=== PATIENT | female | born 1980 | race Caucasian/White ===

== ENCOUNTER 2020-06-01 17:13 | Inpatient (IN) | payer MEDICAID ==
[~2020-06-01] VITALS: Ht 172.7 cm; Wt 60.0 kg
[~2020-06-01 17:13] MED LIST: CEPH-357 PO; CYCL-1 PO; IBUP-1984 PO; IBUP-1985 PO; TRAM50TA2 PO
--- NOTE | 2020-06-01 20:52 | NUR ---
Informed MD of the extent of the wound/He is going to order a CT of the Left FA. Encouraged wound culture order as well. Pt covered with 2 blankets and lights dimmed.
[2020-06-01 21:06] LABS: BASOPHILS # (AUTO) 0.1 X10'3 (0-0.2); BASOPHILS % (AUTO) 0.5 % (0-1); EOSINOPHILS # (AUTO) 0.1 X10'3 (0-0.9); EOSINOPHILS % (AUTO) 0.6 % (0-6); HEMATOCRIT 34.2 % (35.0-45.0); HEMOGLOBIN 11.5 g/dl (12.0-16.0); LYMPHOCYTES # (AUTO) 1.9 X10'3 (1.1-4.8); LYMPHOCYTES % (AUTO) 10.6 % (21-51); MEAN CORPUSCULAR HEMOGLOBIN 29.7 PG (27.0-31.0); MEAN CORPUSCULAR HGB CONC 33.5 g/dL (33.0-36.5); MEAN CORPUSCULAR VOLUME 88.8 FL (78-98); MEAN PLATELET VOLUME 9.3 FL (7.4-10.4); MONOCYTES # (AUTO) 1.3 X10'3 (0-0.9); MONOCYTES % (AUTO) 7.6 % (2-12); NEUTROPHILS # (AUTO) 14.2 X10'3 (1.8-7.7); NEUTROPHILS % (AUTO) 80.7 % (42-75); PLATELET COUNT 284 X10'3 (140-440); RED BLOOD COUNT 3.85 X10'6 (4.20-5.60); RED CELL DISTRIBUTION WIDTH 12.6 % (11.5-14.5); WHITE BLOOD COUNT 17.6 X10'3 (4.5-11.0)
--- NOTE | 2020-06-01 21:12 | NUR ---
CESAR FLAHERTY AT BEDSIDE.
[2020-06-01 21:20] LABS: ALANINE AMINOTRANSFERASE 26 U/L (12-78); ALBUMIN 2.7 G/DL (3.4-5.0); ALBUMIN/GLOBULIN RATIO 0.7 (1.1-1.5); ALKALINE PHOSPHATASE 117 IU/L (46-116); ANION GAP 10 (8-16); ASPARTATE AMINO TRANSFERASE 22 U/L (10-37); BILIRUBIN,TOTAL 0.7 MG/DL (0.1-1.0); BLOOD UREA NITROGEN 14 MG/DL (7-18); BUN/CREATININE RATIO 16.3 (6.6-38.0); CALCIUM 8.4 MG/DL (8.5-10.1); CHLORIDE 104 MMOL/L (99-107); CREATININE 0.86 MG/DL (0.40-0.90); GLUCOSE 91 MG/DL (70-104); POTASSIUM 3.4 MMOL/L (3.5-5.1); SODIUM 140 MMOL/L (135-145); TOTAL CARBON DIOXIDE 26.1 MMOL/L (24-32); TOTAL PROTEIN 6.8 G/DL (6.4-8.2); eGFR 73 ML/MIN
[2020-06-01] MEDS ORDERED: vancomycin/NS 1 GM ADD-VANTAGE 250 ML IV ONE (21:25)
[2020-06-01] MEDS ORDERED: piperacillin/tazo 3.375gm/50ml 50 ML IV ONE (21:25)
[2020-06-01] MEDS ORDERED: LORazepam 2 mg/ml vial IV ONE (21:30)
[2020-06-01] MEDS ORDERED: morphine 4 MG/ML inj SYRINge IV ONE (21:30)
[2020-06-01] MEDS ORDERED: ondansetron/PF 4mg/2ml inj IV ONE (21:30)
[2020-06-01] MEDS ORDERED: iohexol 300mg/ml 100ml inj. ONE (21:32)
[2020-06-01 21:55] LABS: PARTIAL THROMBOPLASTIN TIME 36 SECONDS (22-32)
[2020-06-01] MEDS ORDERED: MULT-1085 PO (22:58)
[2020-06-01] MEDS ORDERED: acetaminophen 325mg tablet PO PRN (23:35)
[2020-06-01] MEDS ORDERED: ondansetron/PF 4mg/2ml inj IV PRN (23:35)
[2020-06-01] MEDS ORDERED: magnesium hydroxide 30ml (MOM) UD suspension PO PRN (23:35)
[2020-06-01] MEDS ORDERED: potassium Cl 40MEQ/1/2NS 520ml 520 ML IV PRN ×2 (23:35)
[2020-06-01] MEDS ORDERED: potassium Cl 20 mEq SR tablet PO PRN ×2 (23:35)
[2020-06-01] MEDS ORDERED: mag hydrox/Alum hydrox/simeth 30ml oral suspension PO PRN (23:35)
[2020-06-01] MEDS ORDERED: magnesium 2GM in 50ml NS 50 ML IV PRN (23:35)
[2020-06-01] MEDS ORDERED: magnesium 4gm in 100ml NS 100 ML IV PRN (23:35)
[2020-06-01] MEDS ORDERED: magnesium Cl slow-release 64mg tablet PO PRN (23:35)
[2020-06-02] VITALS (14 sets, daily range): BP systolic 116–151; BP diastolic 60–110
[2020-06-02] MEDS: normal saline 1000ml 1,000 ML IV SCH ×3 (00:20→18:18)
--- NOTE | 2020-06-02 05:43 | NUR ---
Patient resting comfortably.
[2020-06-02] MEDS: morphine 2 MG/ML inj. syringe IV PRN ×3 (06:30→16:14)
[2020-06-02 07:11] LABS: CLARITY,URINE CLOUDY (Clear); COLOR,URINE YELLOW (Yellow); GLUCOSE, URINE NEGATIVE (Neg); KETONES,URINE NEGATIVE (Neg); LEUKOCYTE ESTERASE ,URINE NEGATIVE (Neg); NITRITES, URINE POSITIVE (Neg); OCCULT BLOOD,URINE TRACE-LYSED (Neg); PROTEIN,URINE TRACE mg/dl (Neg)
[2020-06-02 07:20] LABS: BACTERIA,URINE FEW /HPF (Neg); MUCUS STRANDS FEW /LPF (Neg); RBC,URINE 0-2 /HPF (0-2); SQUAMOUS EPITHELIAL CELL,UR MANY /LPF (FEW); WBC,URINE 0-4 /HPF (0-4)
--- NOTE | 2020-06-02 07:20 | NUR ---
UA REJECTED FOR CULTURE
[2020-06-02 07:23] LABS: UA COLLECTION TYPE CLN CATCH MIDSTREAM
[2020-06-02 07:28] LABS: URINE AMPHETAMINE SCREEN POSITIVE (Neg); URINE BARBITUATE SCREEN NEGATIVE (Neg); URINE BENZODIAZEPINES SCREEN NEGATIVE (Neg); URINE CANNABINOID SCREEN POSITIVE (Neg); URINE COCAINE SCREEN POSITIVE (Neg); URINE METHADONE SCREEN NEGATIVE (Neg); URINE OPIATE SCREEN POSITIVE (Neg); URINE PHENCYCLIDINE SCREEN NEGATIVE (Neg)
--- NOTE | 2020-06-02 09:26 | NUR ---
noe will take patient for debridement
[2020-06-02 09:42] LABS: BASOPHILS # (AUTO) 0.1 X10'3 (0-0.2); BASOPHILS % (AUTO) 0.6 % (0-1); EOSINOPHILS # (AUTO) 0.3 X10'3 (0-0.9); EOSINOPHILS % (AUTO) 2.5 % (0-6); HEMATOCRIT 33.3 % (35.0-45.0); HEMOGLOBIN 11.4 g/dl (12.0-16.0); LYMPHOCYTES # (AUTO) 1.1 X10'3 (1.1-4.8); LYMPHOCYTES % (AUTO) 10.7 % (21-51); MEAN CORPUSCULAR HEMOGLOBIN 30.5 PG (27.0-31.0); MEAN CORPUSCULAR HGB CONC 34.3 g/dL (33.0-36.5); MEAN CORPUSCULAR VOLUME 88.9 FL (78-98); MEAN PLATELET VOLUME 9.2 FL (7.4-10.4); MONOCYTES # (AUTO) 0.7 X10'3 (0-0.9); MONOCYTES % (AUTO) 7.2 % (2-12); PLATELET COUNT 271 X10'3 (140-440); RED BLOOD COUNT 3.75 X10'6 (4.20-5.60); RED CELL DISTRIBUTION WIDTH 12.5 % (11.5-14.5); WHITE BLOOD COUNT 10.1 X10'3 (4.5-11.0)
[2020-06-02] MEDS ORDERED: ondansetron/PF 4mg/2ml inj IV PRN (09:45)
[2020-06-02] MEDS ORDERED: labetalol 20mg/4ml (5mg/ml) syringe IV PRN (09:45)
[2020-06-02] MEDS ORDERED: hydrALAZINE 20mg/ml inj. IV PRN (09:45)
[2020-06-02] MEDS ORDERED: ringers solution, lacted 1,000 ML IV SCH (09:45)
[2020-06-02] MEDS ORDERED: morphine 2 MG/ML inj. syringe IV PRN ×2 (09:45→14:20)
[2020-06-02] MEDS ORDERED: fentaNYL/PF 50MCG/1 ML 2ML syringe IV PRN ×2 (09:45)
[2020-06-02] MEDS: K and/or MAG REPLACEMENT MC SCH ×2 (10:08→20:00)
[2020-06-02 10:14] LABS: ALANINE AMINOTRANSFERASE 42 U/L (12-78); ALBUMIN 2.1 G/DL (3.4-5.0); ALBUMIN/GLOBULIN RATIO 0.6 (1.1-1.5); ALKALINE PHOSPHATASE 172 IU/L (46-116); ANION GAP 8 (8-16); ASPARTATE AMINO TRANSFERASE 47 U/L (10-37); BILIRUBIN,TOTAL 0.4 MG/DL (0.1-1.0); BLOOD UREA NITROGEN 11 MG/DL (7-18); BUN/CREATININE RATIO 17.5 (6.6-38.0); CALCIUM 7.9 MG/DL (8.5-10.1); CHLORIDE 106 MMOL/L (99-107); CREATININE 0.63 MG/DL (0.40-0.90); GLUCOSE 94 MG/DL (70-104); MAGNESIUM 1.8 MG/DL (1.5-2.4); POTASSIUM 3.7 MMOL/L (3.5-5.1); SODIUM 140 MMOL/L (135-145); TOTAL CARBON DIOXIDE 26.1 MMOL/L (24-32); TOTAL PROTEIN 5.8 G/DL (6.4-8.2); eGFR > 90 ML/MIN
--- NOTE | 2020-06-02 10:52 | NUR ---
OR ETA 1100
[2020-06-02] MEDS ORDERED: midazolam 2 mg/2 ml injection ONE (11:38)
[2020-06-02] MEDS ORDERED: fentaNYL/PF 50MCG/1 ML 2ML syringe ONE (11:38)
[2020-06-02] MEDS ORDERED: propofol inj 20 ML IV ONE (11:39)
[2020-06-02] MEDS ORDERED: LIDOcaine 2% (20mg/ml) 5ml vial ONE (11:39)
[2020-06-02] MEDS ORDERED: ondansetron/PF 4mg/2ml inj ONE (11:39)
[2020-06-02] MEDS ORDERED: dexamethasone sod phosphate 10mg/ml inj ONE (11:45)
[2020-06-02] MEDS ORDERED: sevoflurane 250ml liquid IH ONE (11:45)
--- NOTE | 2020-06-02 12:29 | NUR ---
ARRIVED IN PACU VIA BED FROM OR WITH DR Martinez IN ATTENDANCE. REPORT RECEIVED. VS STABLE
[2020-06-02] MEDS: morphine 4 MG/ML inj SYRINge IV PRN ×2 (12:41→13:05)
--- NOTE | 2020-06-02 12:59 | NUR ---
MORE COMFORTABLE AFTER PAIN MEDS
--- NOTE | 2020-06-02 13:29 | NUR ---
PT COMFORTABLE. TO HER ROOM. VS STABLE ON ARRIVAL. NURSE IN ROOM TO ACCEPT PT
--- NOTE | 2020-06-02 14:04 | NUR ---
Patient in room ADAM 350. I have received report from Charlene GARZA and had the opportunity to ask questions and assume patient care.patinat alert and orientated x4, commenced on post op VS. Left arm elevated on pillow with wound vac to 75mm [address]. sero sang drainage observed. patient states pain is 5/10 states she is "ok right now". will continue to monitor.
[2020-06-02] MEDS ORDERED: HYDROcodone/acetaminophen 5mg/325mg tablet PO PRN (14:20)
--- NOTE | 2020-06-02 15:33 | NUR ---
patient seen by Dr Krueger appears agitated but pleasant didnt want to show face initially, positive tox screen. Dr krueger aware.
[2020-06-02] MEDS ORDERED: LORazepam 2 mg/ml vial IV PRN (17:15)
[2020-06-02] MEDS ORDERED: LORazepam 1 MG tablet PO PRN (17:15)
[2020-06-02] MEDS: HYDROcodone/acetaminophen 10/325mg tab PO PRN ×2 (17:43→23:14)
--- NOTE | 2020-06-02 18:25 | NUR ---
Patient in room ADAM 350. I have received report from CHUCHO GARZA and had the opportunity to ask questions and assume patient care.
--- NOTE | 2020-06-02 18:33 | NUR ---
Medicated for pain with morphine x1 and norco x1. with relief. 50 mls out of wound vac sero sang drainage. Patient resting at time of report Report given to Bela GARZA
[2020-06-02] MEDS: doxycycline inj 100 MG in normal saline 100ml IV soln 100 ML IV SCH (20:02)
[2020-06-03] VITALS: BP 121/75
[2020-06-03] MEDS: HYDROcodone/acetaminophen 10/325mg tab PO PRN ×4 (04:28→23:51)
--- NOTE | 2020-06-03 06:15 | NUR ---
Problems reprioritized. Patient report given, questions answered & plan of care reviewed with ADAMARIS GARZA.
[2020-06-03 06:24] LABS: BASOPHILS % (AUTO) 0.2 % (0-1); EOSINOPHILS % (AUTO) 0.1 % (0-6); HEMATOCRIT 34.4 % (35.0-45.0); HEMOGLOBIN 11.4 g/dl (12.0-16.0); LYMPHOCYTES % (AUTO) 9.7 % (21-51); MEAN CORPUSCULAR HEMOGLOBIN 29.7 PG (27.0-31.0); MEAN CORPUSCULAR HGB CONC 33.1 g/dL (33.0-36.5); MEAN CORPUSCULAR VOLUME 89.5 FL (78-98); MEAN PLATELET VOLUME 9.5 FL (7.4-10.4); MONOCYTES # (AUTO) 0.6 X10'3 (0-0.9); MONOCYTES % (AUTO) 5.6 % (2-12); NEUTROPHILS # (AUTO) 8.4 X10'3 (1.8-7.7); NEUTROPHILS % (AUTO) 84.4 % (42-75); PLATELET COUNT 393 X10'3 (140-440); RED BLOOD COUNT 3.84 X10'6 (4.20-5.60); RED CELL DISTRIBUTION WIDTH 12.8 % (11.5-14.5)
[2020-06-03 06:36] LABS: ALANINE AMINOTRANSFERASE 55 U/L (12-78); ALBUMIN 1.9 G/DL (3.4-5.0); ALBUMIN/GLOBULIN RATIO 0.5 (1.1-1.5); ALKALINE PHOSPHATASE 245 IU/L (46-116); ANION GAP 5 (8-16); ASPARTATE AMINO TRANSFERASE 46 U/L (10-37); BILIRUBIN,TOTAL 0.3 MG/DL (0.1-1.0); BLOOD UREA NITROGEN 8 MG/DL (7-18); BUN/CREATININE RATIO 13.1 (6.6-38.0); CALCIUM 7.7 MG/DL (8.5-10.1); CHLORIDE 106 MMOL/L (99-107); CREATININE 0.61 MG/DL (0.40-0.90); GLUCOSE 123 MG/DL (70-104); MAGNESIUM 1.9 MG/DL (1.5-2.4); POTASSIUM 3.8 MMOL/L (3.5-5.1); SODIUM 137 MMOL/L (135-145); TOTAL CARBON DIOXIDE 26.5 MMOL/L (24-32); TOTAL PROTEIN 5.5 G/DL (6.4-8.2); eGFR > 90 ML/MIN
--- NOTE | 2020-06-03 06:50 | NUR ---
Patient in room ADAM 350. I have received report from Alon GARZA and had the opportunity to ask questions and assume patient care.
[2020-06-03 08:00] VITALS: BP 110/79
[2020-06-03] MEDS: K and/or MAG REPLACEMENT MC SCH ×2 (08:00→20:00)
[2020-06-03] MEDS: normal saline 1000ml 1,000 ML IV SCH ×3 (08:19→21:06)
[2020-06-03] MEDS: doxycycline inj 100 MG in normal saline 100ml IV soln 100 ML IV SCH ×2 (08:20→21:01)
[2020-06-03 11:00] VITALS: BP 120/84
--- NOTE | 2020-06-03 18:22 | NUR ---
Problems reprioritized. Patient report given, questions answered & plan of care reviewed with Analisa GARZA.
--- NOTE | 2020-06-03 18:30 | NUR ---
Patient in room ADAM 350. I have received report from ADAMARIS and had the opportunity to ask questions and assume patient care.
[2020-06-03 20:00] VITALS: BP 128/83
[2020-06-03] MEDS: lactobacillus rhamnosus 10,000 MMU CELLS/CAPSULE PO SCH (21:01)
[2020-06-03] MEDS: morphine 2 MG/ML inj. syringe IV PRN (21:03)
[2020-06-03 23:00] VITALS: BP 133/94
[2020-06-04] MEDS: HYDROcodone/acetaminophen 10/325mg tab PO PRN ×3 (04:05→13:47)
--- NOTE | 2020-06-04 06:45 | NUR ---
Problems reprioritized. Patient report given, questions answered & plan of care reviewed with ADAMARIS.
[2020-06-04 06:50] LABS: BASOPHILS % (AUTO) 0.6 % (0-1); EOSINOPHILS # (AUTO) 0.1 X10'3 (0-0.9); EOSINOPHILS % (AUTO) 1.7 % (0-6); HEMATOCRIT 34.2 % (35.0-45.0); HEMOGLOBIN 11.3 g/dl (12.0-16.0); LYMPHOCYTES # (AUTO) 1.9 X10'3 (1.1-4.8); MEAN CORPUSCULAR HEMOGLOBIN 29.5 PG (27.0-31.0); MEAN CORPUSCULAR HGB CONC 32.9 g/dL (33.0-36.5); MEAN CORPUSCULAR VOLUME 89.6 FL (78-98); MEAN PLATELET VOLUME 8.8 FL (7.4-10.4); MONOCYTES # (AUTO) 0.5 X10'3 (0-0.9); MONOCYTES % (AUTO) 7.4 % (2-12); NEUTROPHILS # (AUTO) 3.6 X10'3 (1.8-7.7); NEUTROPHILS % (AUTO) 59.3 % (42-75); PLATELET COUNT 402 X10'3 (140-440); RED BLOOD COUNT 3.82 X10'6 (4.20-5.60); RED CELL DISTRIBUTION WIDTH 13.3 % (11.5-14.5); WHITE BLOOD COUNT 6.2 X10'3 (4.5-11.0)
[2020-06-04 07:10] LABS: ALANINE AMINOTRANSFERASE 74 U/L (12-78); ALBUMIN 1.9 G/DL (3.4-5.0); ALBUMIN/GLOBULIN RATIO 0.5 (1.1-1.5); ALKALINE PHOSPHATASE 294 IU/L (46-116); ANION GAP 9 (8-16); ASPARTATE AMINO TRANSFERASE 100 U/L (10-37); BILIRUBIN,TOTAL 0.3 MG/DL (0.1-1.0); BLOOD UREA NITROGEN 5 MG/DL (7-18); BUN/CREATININE RATIO 8.6 (6.6-38.0); CALCIUM 7.5 MG/DL (8.5-10.1); CHLORIDE 107 MMOL/L (99-107); CREATININE 0.58 MG/DL (0.40-0.90); GLUCOSE 87 MG/DL (70-104); MAGNESIUM 1.9 MG/DL (1.5-2.4); POTASSIUM 3.6 MMOL/L (3.5-5.1); SODIUM 142 MMOL/L (135-145); TOTAL CARBON DIOXIDE 26.2 MMOL/L (24-32); TOTAL PROTEIN 5.5 G/DL (6.4-8.2); eGFR > 90 ML/MIN
--- NOTE | 2020-06-04 07:42 | NUR ---
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 Thank you Gloria
[2020-06-04] MEDS: doxycycline inj 100 MG in normal saline 100ml IV soln 100 ML IV SCH (07:43)
[2020-06-04] MEDS: lactobacillus rhamnosus 10,000 MMU CELLS/CAPSULE PO SCH (07:43)
[2020-06-04 08:00] VITALS: BP_SYST 120; BP_SYST 140; BP_DIAS 50; BP_DIAS 98
[2020-06-04] MEDS: K and/or MAG REPLACEMENT MC SCH (08:00)
[2020-06-04] MEDS ORDERED: SULF1TAB49 PO (10:25)
[2020-06-04] MEDS ORDERED: HYDR-4383 PO (10:25)
[2020-06-04] MEDS ORDERED: AMOX-580 PO (10:25)
[2020-06-04 11:00] VITALS: BP 128/90
[2020-06-04] MEDS: normal saline 1000ml 1,000 ML IV SCH (11:35)
--- NOTE | 2020-06-04 13:35 | NUR ---
Pt Dc to home with daughter. Pt is A & O x4 and in no apparent distress. Pt verbalizes understanding of all DC orders. Pt Educated on how to change wound vac, monitor for any leaks and instructions to bring supplies to wound care appointments. Pt able to teach back removal and replacement of cartridges on [place]. Pt educated about the importance of finishing up all prescribed antibiotics, avoid smoking, drinking and drugs overall. Pt upset because she states she cannot read at a good speed to understand. Pt given pamphlets, picture printout and details of how to trouble shoot wound vac. Pt felt more comfortable at the end. Pt packed all of her belongings and got dress. Pt's daughter came to pick her up, pt chose to walk to the front with our aid to help her where her daughter picked her up.
== END 2020-06-04 13:50 | disposition home health service (06) | DRG 383 ==
LOC: ER 17:14 → ED HOLD 23:32 → SUR 3N 06-02 13:43
PROVIDERS: ADMIT Family Medicine; ATTEND Internal Medicine
PROC: BP2K1ZZ Computerized Tomography (CT Scan) of Left Forearm using Low Osmolar Contrast (ICD-10-PCS; 2020-06-01)
PROC: 0JBH0ZZ Excision of Left Lower Arm Subcutaneous Tissue and Fascia, Open Approach (ICD-10-PCS; principal; 2020-06-02 11:45)
DX: L03.114 Cellulitis of left upper limb (principal); L02.414 Cutaneous abscess of left upper limb; F17.210 Nicotine dependence, cigarettes, uncomplicated; F91.8 Other conduct disorders; T22.011A Burn of unspecified degree of right forearm, initial encounter; I96 Gangrene, not elsewhere classified; F15.10 Other stimulant abuse, uncomplicated; F14.10 Cocaine abuse, uncomplicated; B95.4 Other streptococcus as the cause of diseases classified elsewhere; Z20.822 Contact with and (suspected) exposure to COVID-19; B95.7 Other staphylococcus as the cause of diseases classified elsewhere; F11.10 Opioid abuse, uncomplicated; Y27.0XXA Contact with steam and hot vapors, undetermined intent, initial encounter; Z59.0 Homelessness; Z90.710 Acquired absence of both cervix and uterus; Y93.89 Activity, other specified; Y92.89 Other specified places as the place of occurrence of the external cause; Y99.8 Other external cause status; Z90.49 Acquired absence of other specified parts of digestive tract; Z79.899 Other long term (current) drug therapy
CPT/HCPCS: 36415; 73201; 80053; 80305; 81001; 83605; 83735; 84145; 85025; 85610; 85730; 87040; 87070; 87077; 87081; 87186; 87635; 96365; 96375; 99285; A4618; A6449; A6550; A7000; C9803; G0378; J1100; J2001; J2060; J2250; J2270; J2405; J2543; J2704; J3010; J3370; J3490; J7030; J7120; Q9967

== ENCOUNTER 2020-06-06 07:59 | Outpatient (CLI) | payer MEDICAID ==
[~2020-06-06 07:59] MED LIST changes: +AMOX-580 PO; -CYCL-1 PO; +HYDR-4383 PO; -IBUP-1985 PO; +MULT-1085 PO; +SULF1TAB49 PO; -TRAM50TA2 PO
[2020-06-06] MEDS ORDERED: LIDOcaine 4% (40 mg/ml) topical solution 50ml ONE (08:16)
== END 2020-06-06 23:59 | disposition home or self-care (01) ==
LOC: WOUND CARE 07:59
PROVIDERS: ATTEND Nurse Practitioner
DX: L98.492 Non-pressure chronic ulcer of skin of other sites with fat layer exposed (principal); L02.414 Cutaneous abscess of left upper limb; I96 Gangrene, not elsewhere classified; F14.10 Cocaine abuse, uncomplicated; F17.210 Nicotine dependence, cigarettes, uncomplicated; F11.10 Opioid abuse, uncomplicated; F15.10 Other stimulant abuse, uncomplicated; Z90.49 Acquired absence of other specified parts of digestive tract; Z90.710 Acquired absence of both cervix and uterus; Z79.899 Other long term (current) drug therapy; Y83.8 Other surgical procedures as the cause of abnormal reaction of the patient, or of later complication, without mention of misadventure at the time of the procedure
CPT/HCPCS: 11042; 11045; 97605

== ENCOUNTER 2020-06-08 12:37 | Outpatient (CLI) | payer MEDICAID ==
[~2020-06-08 12:37] MED LIST changes: +LIDOcaine 4% (40 mg/ml) topical solution 50ml ONE
== END 2020-06-08 23:59 | disposition home or self-care (01) ==
LOC: WOUND CARE 12:37
PROVIDERS: ATTEND Nurse Practitioner
DX: T81.89XD Other complications of procedures, not elsewhere classified, subsequent encounter (principal); L02.414 Cutaneous abscess of left upper limb; I96 Gangrene, not elsewhere classified; F14.10 Cocaine abuse, uncomplicated; F17.210 Nicotine dependence, cigarettes, uncomplicated; F11.10 Opioid abuse, uncomplicated; F15.10 Other stimulant abuse, uncomplicated; Z90.49 Acquired absence of other specified parts of digestive tract; Z90.710 Acquired absence of both cervix and uterus; Z79.899 Other long term (current) drug therapy; Y83.8 Other surgical procedures as the cause of abnormal reaction of the patient, or of later complication, without mention of misadventure at the time of the procedure
CPT/HCPCS: 97605